=== PATIENT | male | born 1985 | race Hispanic/Latino ===

== ENCOUNTER 2018-07-17 17:06 | Inpatient (IN) | payer MEDICAID ==
[~2018-07-17] VITALS: Ht 182.9 cm; Wt 168.1 kg
[2018-07-17] MEDS ORDERED: SODIUM CHLORIDE 0.9% 1000ML 1,000 ML IV ONE ×2 (17:51→18:47)
[2018-07-17 18:22] LABS: BASOPHILS % (AUTO) 0.2 % (0.0-5.0); EOSINOPHILS % (AUTO) 0.3 % (0.0-8.0); HEMATOCRIT 42.7 % (42-54); LYMPHOCYTES % (AUTO) 7.6 % (21.0-51.0); MEAN CORPUSCULAR HEMOGLOBIN 27.4 pg (27.0-33.0); MEAN CORPUSCULAR HGB CONC 33.2 g/dL (32.0-36.0); MEAN CORPUSCULAR VOLUME 82.3 fL (79-99); NEUTROPHILS % (AUTO) 86.9 % (40.0-77.0); PLATELET COUNT (AUTO) 287 K/uL (130-400); RED BLOOD CELL COUNT(AUTO) 5.19 MIL/uL (4.50-6.20); RED CELL DISTRIBUTION WIDTH 16.3 % (11.0-15.5); WHITE BLOOD COUNT (AUTO) 18.2 K/uL (4.8-10.8)
[2018-07-17 18:37] LABS: CREATININE 5.4 mg/dL (0.5-1.5); POTASSIUM 3.3 mmol/L (3.5-5.1)
[2018-07-17 18:43] LABS: ALBUMIN 2.8 g/dL (3.5-5.0); BILIRUBIN,TOTAL 2.4 mg/dL (0.2-1.0)
[2018-07-17] MEDS ORDERED: LEVOFLOXACIN 500 MG/D5W 100 ML 100 ML ONE (18:46)
[2018-07-17] MEDS ORDERED: METRONIDAZOLE 500MG/100ML BAG 100 ML ONE (18:46)
[2018-07-17] MEDS ORDERED: MAGNESIUM 2GM PREMIX 50ML 50 ML IV PRN (19:15)
[2018-07-17] MEDS ORDERED: POTASSIUM CHLORIDE 20MEQ/100ML 100 ML IV PRN (19:15)
[2018-07-17] MEDS ORDERED: LIDOCAINE HCL-MPF 1% 2ML VIAL IVP PRN (19:15)
[2018-07-17] MEDS ORDERED: SODIUM CHLORIDE 0.9% 1000ML 1,000 ML IV SCH ×3 (20:06→23:15)
[2018-07-17] MEDS ORDERED: GLUCAGON 1MG KIT 1 MG ML IM PRN (20:15)
[2018-07-17] MEDS ORDERED: DEXTROSE 50%-WATER 50 ML DISP.SYRIN IV PRN (20:15)
[2018-07-17] MEDS ORDERED: MORPHINE SULFATE 4 MG/1ML SYG IV PRN (20:15)
[2018-07-17] MEDS ORDERED: MORPHINE SULFATE 2 MG/ML 1ML SYG IV PRN (20:15)
[2018-07-17] MEDS ORDERED: ACETAMINOPHEN 325 MG TAB PO PRN ×2 (20:15→23:15)
[2018-07-17] MEDS ORDERED: ONDANSETRON HCL 4 MG/2 ML VIAL IV PRN (20:15)
[2018-07-17] MEDS ORDERED: VANCOMYCIN 2 GM in SODIUM CHLORIDE 0.9% 500ML 500 ML IV ONE (22:00)
[2018-07-17] MEDS ORDERED: COMPOUND IV REFRIGERATED 1 EACH IVSOLN MISC PRN (22:00)
[2018-07-17] MEDS ORDERED: VANCOMYCIN PROTOCOL PER PHARMACY IV SCH (22:00)
[2018-07-17] MEDS ORDERED: LIDOCAINE HCL-MPF 1% 2ML VIAL ONE (22:03)
[2018-07-17] MEDS ORDERED: POTASSIUM CHLORIDE 20MEQ/100ML 0 ML IV ONE (22:04)
[2018-07-17] MEDS ORDERED: VANCOMYCIN 1GM+NS 250ML 250 ML IV SCH ×4 (22:15→23:15)
[2018-07-17 23:38] LABS: BILIRUBIN,URINE Moderate (NEGATIVE); COLOR,URINE Dark Yellow (YELLOW); GLUCOSE, URINE (UA) Negative (NEGATIVE); KETONES,URINE Trace mg/dL (NEGATIVE); LEUKOCYTE ESTERASE ,URINE Small (NEGATIVE); NITRATE,URINE Negative (NEGATIVE); OCCULT BLOOD,URINE Trace (NEGATIVE); PROTEIN,URINE POS 1+ (NEGATIVE)
[2018-07-17 23:39] LABS: APPEARANCE,URINE CLOUDY (CLEAR)
[2018-07-17 23:45] VITALS: BP 105/51
[2018-07-17 23:46] LABS: AMORPHOUS SEDIMENT,UR Many /LPF (None Seen); BACTERIA,URINE None Seen /HPF (None Seen); RBC,URINE 0-1 /HPF (0-1); SQUAMOUS EPITHELIAL CELL,UR Few /HPF (0-2); WBC,URINE 0-1 /HPF (0-1)
[2018-07-18] VITALS (35 sets, daily range): BP systolic 85–169; BP diastolic 29–97
[2018-07-18] MEDS ORDERED: INSULIN HUMULIN R 100 UNIT/ML 3ML SQ SCH
[2018-07-18] MEDS ORDERED: SIMV10TA6 PO (00:14)
[2018-07-18] MEDS ORDERED: LORA10TA7 PO (00:14)
[2018-07-18] MEDS ORDERED: HYDR25TA PO (00:14)
[2018-07-18] MEDS ORDERED: VALS80TA2 PO (00:14)
[2018-07-18] MEDS ORDERED: FLUT16H NS (00:14)
[2018-07-18] MEDS ORDERED: METF-444 PO (00:14)
[2018-07-18] MEDS ORDERED: DEXTROSE 50%-WATER 50 ML DISP.SYRIN IV PRN (00:45)
[2018-07-18] MEDS ORDERED: NOREPINEPHRINE 4MG/NS 250ML 250 ML IV SCH (00:45)
[2018-07-18] MEDS ORDERED: GLUCAGON 1MG KIT 1 MG ML IM PRN (00:45)
[2018-07-18] MEDS ORDERED: ACETAMINOPHEN 650 MG SUPPOSITORY RC PRN (00:45)
[2018-07-18] MEDS ORDERED: SODIUM CHLORIDE 0.9% 1000ML 1,000 ML IV SCH (00:45)
[2018-07-18] MEDS: SODIUM CHLORIDE 0.9% 1000ML 1,000 ML IV SCH ×3 (01:32→02:47)
[2018-07-18] MEDS ORDERED: METRONIDAZOLE 500MG/100ML BAG 100 ML IV SCH (02:00)
[2018-07-18 04:22] LABS: BASOPHILS % (AUTO) 0.4 % (0.0-5.0); EOSINOPHILS % (AUTO) 0.1 % (0.0-8.0); HEMATOCRIT 36.5 % (42-54); LYMPHOCYTES % (AUTO) 7.2 % (21.0-51.0); MEAN CORPUSCULAR HEMOGLOBIN 27.6 pg (27.0-33.0); MEAN CORPUSCULAR HGB CONC 32.9 g/dL (32.0-36.0); MEAN CORPUSCULAR VOLUME 83.7 fL (79-99); MONOCYTES % (AUTO) 6.4 % (3.0-13.0); NEUTROPHILS % (AUTO) 85.9 % (40.0-77.0); PLATELET COUNT (AUTO) 285 K/uL (130-400); RED BLOOD CELL COUNT(AUTO) 4.36 MIL/uL (4.50-6.20); RED CELL DISTRIBUTION WIDTH 16.6 % (11.0-15.5); WHITE BLOOD COUNT (AUTO) 14.6 K/uL (4.8-10.8)
[2018-07-18 04:34] LABS: ALBUMIN 2.2 g/dL (3.5-5.0); BILIRUBIN,TOTAL 2.2 mg/dL (0.2-1.0); CREATININE 4.7 mg/dL (0.5-1.5)
[2018-07-18 04:38] LABS: POTASSIUM 2.6 mmol/L (3.5-5.1)
[2018-07-18] MEDS: POTASSIUM CHLORIDE 20MEQ/100ML 100 ML IV PRN ×3 (05:08→21:44)
[2018-07-18] MEDS: LIDOCAINE HCL-MPF 1% 2ML VIAL IVP PRN ×3 (05:08→21:44)
[2018-07-18] MEDS: INSULIN HUMULIN R 100 UNIT/ML 3ML SQ SCH ×4 (05:58→23:45)
[2018-07-18] MEDS ORDERED: ENOXAPARIN SODIUM 40 MG/0.4 ML SYRINGE SQ SCH (09:00)
[2018-07-18] MEDS ORDERED: FAMOTIDINE/PF 20 MG/2 ML VIAL IV SCH (09:00)
[2018-07-18] MEDS: ACETAMINOPHEN 325 MG TAB PO PRN ×3 (10:08→23:44)
[2018-07-18] MEDS ORDERED: PNEUMOCOCCAL VACCINE POLYVALENT 0.5 ML/VIAL [PPV] IM SCH (11:17)
[2018-07-18] MEDS: AZTREONAM 1 GM VIAL IVP SCH ×2 (12:17→23:43)
[2018-07-18] MEDS: LACTATED RINGERS 1000ML 1,000 ML IV SCH ×2 (12:20→20:40)
[2018-07-18] MEDS: LEVOFLOXACIN 500 MG/D5W 100 ML 100 ML IV SCH (13:24)
[2018-07-18] MEDS: ONDANSETRON HCL 4 MG/2 ML VIAL IVP PRN (13:24)
[2018-07-18] MEDS: METRONIDAZOLE 500MG/100ML BAG 100 ML IV SCH ×2 (16:21→23:43)
[2018-07-18] MEDS ORDERED: LORAZEPAM 2 MG/ML 1 ML VIAL IVP PRN (16:30)
[2018-07-18] MEDS ORDERED: VANCOMYCIN 750MG + NS 250 ML IV SCH ×2 (18:00)
[2018-07-19] VITALS (25 sets, daily range): BP systolic 126–174; BP diastolic 63–93
[2018-07-19] MEDS: POTASSIUM CHLORIDE 20MEQ/100ML 100 ML IV PRN ×2 (01:10→02:28)
[2018-07-19] MEDS: LIDOCAINE HCL-MPF 1% 2ML VIAL IVP PRN ×2 (01:10→02:28)
[2018-07-19 03:37] LABS: HEMATOCRIT 36.6 % (42-54); MEAN CORPUSCULAR HEMOGLOBIN 26.8 pg (27.0-33.0); MEAN CORPUSCULAR HGB CONC 32.5 g/dL (32.0-36.0); MEAN CORPUSCULAR VOLUME 82.5 fL (79-99); PLATELET COUNT (AUTO) 278 K/uL (130-400); RED BLOOD CELL COUNT(AUTO) 4.44 MIL/uL (4.50-6.20); RED CELL DISTRIBUTION WIDTH 16.7 % (11.0-15.5); WHITE BLOOD COUNT (AUTO) 11.8 K/uL (4.8-10.8)
[2018-07-19 03:47] LABS: ALBUMIN 2.1 g/dL (3.5-5.0); BILIRUBIN,TOTAL 2.7 mg/dL (0.2-1.0); CREATININE 1.7 mg/dL (0.5-1.5); POTASSIUM 3.7 mmol/L (3.5-5.1); TOTAL PROTEIN, SERUM 7.5 g/dL (6.0-8.3)
[2018-07-19] MEDS: LACTATED RINGERS 1000ML 1,000 ML IV SCH ×3 (05:05→15:57)
[2018-07-19] MEDS: INSULIN HUMULIN R 100 UNIT/ML 3ML SQ SCH ×3 (06:00→20:09)
[2018-07-19] MEDS: METRONIDAZOLE 500MG/100ML BAG 100 ML IV SCH ×3 (08:29→23:22)
[2018-07-19] MEDS: ACETAMINOPHEN 325 MG TAB PO PRN ×2 (09:53→20:09)
[2018-07-19] MEDS ORDERED: MORPHINE SULFATE 2 MG/ML 1ML SYG IM PRN (11:00)
[2018-07-19] MEDS: AZTREONAM 1 GM VIAL IVP SCH ×2 (12:05→23:10)
[2018-07-19] MEDS ORDERED: POTASSIUM CHLORIDE 20 MEQ ERTAB PO PRN (17:00)
[2018-07-19] MEDS ORDERED: LEVOFLOXACIN 500 MG/D5W 100 ML 100 ML IV SCH (18:00)
[2018-07-19] MEDS: ONDANSETRON HCL 4 MG/2 ML VIAL IVP PRN (21:04)
[2018-07-19] MEDS: MORPHINE SULFATE 2 MG/ML 1ML SYG IV PRN (21:09)
[2018-07-20] VITALS (13 sets, daily range): BP systolic 97–150; BP diastolic 45–98
[2018-07-20] MEDS ORDERED: HALOPERIDOL LACTATE 5 MG/ML VIAL ONE (03:15)
[2018-07-20] MEDS ORDERED: HALOPERIDOL LACTATE 5 MG/ML VIAL IV PRN (03:15)
[2018-07-20] MEDS: LACTATED RINGERS 1000ML 1,000 ML IV SCH ×2 (03:25→14:26)
[2018-07-20 05:36] LABS: CREATININE 1.2 mg/dL (0.5-1.5); POTASSIUM 3.9 mmol/L (3.5-5.1)
[2018-07-20] MEDS: INSULIN HUMULIN R 100 UNIT/ML 3ML SQ SCH ×4 (06:34→20:52)
[2018-07-20] MEDS: METRONIDAZOLE 500MG/100ML BAG 100 ML IV SCH ×3 (07:34→23:30)
[2018-07-20 07:38] LABS: HEMATOCRIT 36.1 % (42-54); MEAN CORPUSCULAR HEMOGLOBIN 27.8 pg (27.0-33.0); MEAN CORPUSCULAR HGB CONC 33.7 g/dL (32.0-36.0); MEAN CORPUSCULAR VOLUME 82.6 fL (79-99); NUCLEATED RED BLOOD CELLS 0.1 % (0.0-0.19); PLATELET COUNT (AUTO) 374 K/uL (130-400); RED BLOOD CELL COUNT(AUTO) 4.37 MIL/uL (4.50-6.20); RED CELL DISTRIBUTION WIDTH 17.2 % (11.0-15.5); WHITE BLOOD COUNT (AUTO) 12.1 K/uL (4.8-10.8)
[2018-07-20] MEDS: ENOXAPARIN SODIUM 60 MG/0.6 ML SQ SCH ×2 (09:00→20:52)
[2018-07-20] MEDS ORDERED: ZIPRASIDONE MESYLATE 20 MG/VIAL IM PRN ×2 (09:00→09:15)
[2018-07-20] MEDS: AZTREONAM 1 GM VIAL IVP SCH ×2 (12:39→23:22)
[2018-07-20] MEDS: LEVOFLOXACIN 500 MG/D5W 100 ML 100 ML IV SCH ×2 (12:44→14:07)
[2018-07-20] MEDS: PANTOPRAZOLE SODIUM 40 MG TABLET.DR PO SCH (12:57)
[2018-07-20] MEDS: HYDROCODONE/ACETAMINOPHEN 5/325 MG TAB PO PRN ×2 (14:24→20:51)
[2018-07-20 19:33] LABS: HEMATOCRIT 33.9 % (42-54); MEAN CORPUSCULAR HGB CONC 33.8 g/dL (32.0-36.0); MEAN CORPUSCULAR VOLUME 82.7 fL (79-99); PLATELET COUNT (AUTO) 399 K/uL (130-400); RED CELL DISTRIBUTION WIDTH 16.5 % (11.0-15.5); WHITE BLOOD COUNT (AUTO) 11.1 K/uL (4.8-10.8)
[2018-07-20] MEDS: QUETIAPINE FUMARATE 25 MG TAB PO SCH (20:51)
[2018-07-21] MEDS: LACTATED RINGERS 1000ML 1,000 ML IV SCH ×2 (02:11→14:38)
[2018-07-21 04:00] VITALS: BP 114/62
[2018-07-21] MEDS: PANTOPRAZOLE SODIUM 40 MG TABLET.DR PO SCH ×2 (05:29→08:48)
[2018-07-21 05:30] LABS: MEAN CORPUSCULAR HEMOGLOBIN 27.5 pg (27.0-33.0); MEAN CORPUSCULAR HGB CONC 33.1 g/dL (32.0-36.0); PLATELET COUNT (AUTO) 389 K/uL (130-400); RED BLOOD CELL COUNT(AUTO) 3.98 MIL/uL (4.50-6.20); RED CELL DISTRIBUTION WIDTH 16.9 % (11.0-15.5); WHITE BLOOD COUNT (AUTO) 9.3 K/uL (4.8-10.8)
[2018-07-21 05:38] LABS: CREATININE 1.2 mg/dL (0.5-1.5); POTASSIUM 3.2 mmol/L (3.5-5.1)
[2018-07-21] MEDS: INSULIN HUMULIN R 100 UNIT/ML 3ML SQ SCH ×4 (05:41→20:31)
[2018-07-21] MEDS: POTASSIUM CHLORIDE 10% ELIXIR 20 MEQ/15 ML UDCUP PO PRN ×3 (05:55→19:30)
[2018-07-21] MEDS: QUETIAPINE FUMARATE 25 MG TAB PO SCH ×2 (08:48→19:30)
[2018-07-21] MEDS: METRONIDAZOLE 500MG/100ML BAG 100 ML IV SCH ×3 (08:48→23:23)
[2018-07-21] MEDS: LEVOFLOXACIN 500 MG/D5W 100 ML 100 ML IV SCH (08:48)
[2018-07-21 08:49] VITALS: BP 111/52
[2018-07-21] MEDS: MORPHINE SULFATE 2 MG/ML 1ML SYG IV PRN (08:49)
[2018-07-21] MEDS: AZTREONAM 1 GM VIAL IVP SCH (11:21)
[2018-07-21 12:23] VITALS: BP 111/56
[2018-07-21] MEDS ORDERED: MAGNESIUM CITRATE 296 ML SOLUTION PO SCH (14:15)
[2018-07-21] MEDS ORDERED: LACTULOSE 20 GM/30 ML UDCUP PO SCH ×3 (14:15→16:15)
[2018-07-21] MEDS ORDERED: PEG 3350/NA SULF,BICARB,CL/KCL 4000 ML SOLN PO SCH (16:15)
[2018-07-21 17:16] VITALS: BP 106/69
[2018-07-21] MEDS ORDERED: BISACODYL 5 MG TABLET.DR PO SCH (19:30)
[2018-07-21 20:00] VITALS: BP 125/83
[2018-07-21] MEDS: HYDROCODONE/ACETAMINOPHEN 5/325 MG TAB PO PRN (20:39)
[2018-07-21 23:35] VITALS: BP 127/86
[2018-07-22] VITALS (21 sets, daily range): BP systolic 90–146; BP diastolic 44–100
[2018-07-22] MEDS: LACTATED RINGERS 1000ML 1,000 ML IV SCH ×3 (00:34→23:50)
[2018-07-22] MEDS: ONDANSETRON HCL 4 MG/2 ML VIAL IVP PRN (01:46)
[2018-07-22 04:11] LABS: BASOPHILS % (AUTO) 0.7 % (0.0-5.0); EOSINOPHILS % (AUTO) 1.3 % (0.0-8.0); HEMATOCRIT 31.7 % (42-54); LYMPHOCYTES % (AUTO) 15.3 % (21.0-51.0); MEAN CORPUSCULAR HEMOGLOBIN 28.5 pg (27.0-33.0); MEAN CORPUSCULAR HGB CONC 34.3 g/dL (32.0-36.0); MEAN CORPUSCULAR VOLUME 83.1 fL (79-99); NEUTROPHILS % (AUTO) 75.7 % (40.0-77.0); PLATELET COUNT (AUTO) 494 K/uL (130-400); RED BLOOD CELL COUNT(AUTO) 3.82 MIL/uL (4.50-6.20); RED CELL DISTRIBUTION WIDTH 17.1 % (11.0-15.5); WHITE BLOOD COUNT (AUTO) 8.9 K/uL (4.8-10.8)
[2018-07-22 04:31] LABS: BILIRUBIN,TOTAL 0.9 mg/dL (0.2-1.0); POTASSIUM 3.7 mmol/L (3.5-5.1); TOTAL PROTEIN, SERUM 6.9 g/dL (6.0-8.3)
[2018-07-22] MEDS: INSULIN HUMULIN R 100 UNIT/ML 3ML SQ SCH ×4 (06:35→20:41)
[2018-07-22] MEDS: PANTOPRAZOLE SODIUM 40 MG TABLET.DR PO SCH (08:30)
[2018-07-22] MEDS: METRONIDAZOLE 500MG/100ML BAG 100 ML IV SCH ×3 (08:30→23:50)
[2018-07-22] MEDS: QUETIAPINE FUMARATE 25 MG TAB PO SCH ×2 (08:31→20:40)
[2018-07-22] MEDS: LEVOFLOXACIN 500 MG/D5W 100 ML 100 ML IV SCH ×2 (08:31→08:35)
[2018-07-22] MEDS ORDERED: PROPOFOL 1000 MG/100 ML 100 ML IV ONE (13:15)
[2018-07-22] MEDS: MORPHINE SULFATE 2 MG/ML 1ML SYG IV PRN (15:32)
[2018-07-23] VITALS (13 sets, daily range): BP systolic 90–122; BP diastolic 39–62
[2018-07-23] MEDS: INSULIN HUMULIN R 100 UNIT/ML 3ML SQ SCH ×4 (06:21→21:00)
[2018-07-23] MEDS: PANTOPRAZOLE SODIUM 40 MG TABLET.DR PO SCH (07:30)
[2018-07-23] MEDS ORDERED: LIDOCAINE HCL 1% 20 ML VIAL ONE (13:00)
[2018-07-23] MEDS ORDERED: GLYCOPYRROLATE 0.2 MG/ML 5 ML VIAL ONE (13:00)
[2018-07-23] MEDS ORDERED: PROPOFOL 10 MG/ML 20ML VIAL IV ONE (13:00)
[2018-07-23] MEDS ORDERED: SUCCINYLCHOLINE CHLORIDE 20 MG/ML 10 ML VIAL ONE (13:12)
[2018-07-23] MEDS: LACTATED RINGERS 1000ML 1,000 ML IV SCH ×2 (13:42→21:31)
[2018-07-23] MEDS: METRONIDAZOLE 500MG/100ML BAG 100 ML IV SCH ×3 (15:09→23:05)
[2018-07-23] MEDS: LEVOFLOXACIN 500 MG/D5W 100 ML 100 ML IV SCH ×2 (15:09→15:22)
[2018-07-23] MEDS: QUETIAPINE FUMARATE 25 MG TAB PO SCH ×3 (15:10→21:53)
[2018-07-23] MEDS: MORPHINE SULFATE 2 MG/ML 1ML SYG IV PRN (23:02)
[2018-07-24] VITALS (21 sets, daily range): BP systolic 104–136; BP diastolic 55–71
[2018-07-24 05:04] LABS: HEMATOCRIT 32.5 % (42-54); MEAN CORPUSCULAR HEMOGLOBIN 27.7 pg (27.0-33.0); MEAN CORPUSCULAR VOLUME 84.2 fL (79-99); PLATELET COUNT (AUTO) 492 K/uL (130-400); RED BLOOD CELL COUNT(AUTO) 3.86 MIL/uL (4.50-6.20); RED CELL DISTRIBUTION WIDTH 17.3 % (11.0-15.5); WHITE BLOOD COUNT (AUTO) 7.3 K/uL (4.8-10.8)
[2018-07-24 05:14] LABS: CREATININE 0.9 mg/dL (0.5-1.5); MAGNESIUM 1.6 mg/dL (1.80-2.40); POTASSIUM 3.6 mmol/L (3.5-5.1)
[2018-07-24] MEDS: INSULIN HUMULIN R 100 UNIT/ML 3ML SQ SCH ×4 (06:21→20:20)
[2018-07-24] MEDS: QUETIAPINE FUMARATE 25 MG TAB PO SCH ×2 (09:00→20:31)
[2018-07-24] MEDS: METRONIDAZOLE 500MG/100ML BAG 100 ML IV SCH (12:18)
[2018-07-24] MEDS: LACTATED RINGERS 1000ML 1,000 ML IV SCH (12:18)
[2018-07-24] MEDS ORDERED: ONDANSETRON HCL 4 MG/2 ML VIAL ONE (12:50)
[2018-07-24] MEDS ORDERED: LIDOCAINE PF 2% 5ML ABBOJECT ONE (12:50)
[2018-07-24] MEDS ORDERED: DEXAMETHASONE SOD PHOSPHATE 10MG/ML 1ML VIAL ONE (12:50)
[2018-07-24] MEDS ORDERED: PROPOFOL 10 MG/ML 20ML VIAL IV ONE (12:50)
[2018-07-24] MEDS ORDERED: FENTANYL CITRATE PF 50 MCG/1 ML 2ML VIAL ONE (12:51)
[2018-07-24] MEDS ORDERED: MIDAZOLAM HCL 1 MG/ML 2ML VIAL ONE (12:51)
[2018-07-24] MEDS ORDERED: NEOSTIGMINE 5MG/5ML SYR IV ONE (12:51)
[2018-07-24] MEDS ORDERED: ROCURONIUM 10MG/1ML SYR 10 MG/ML ML ONE (12:51)
[2018-07-24] MEDS ORDERED: MAGNESIUM 2GM PREMIX 50ML 50 ML IV SCH (18:00)
[2018-07-24] MEDS: CEFTRIAXONE SODIUM 1 GM IVP SCH (18:13)
[2018-07-24] MEDS: MORPHINE SULFATE 2 MG/ML 1ML SYG IV PRN (20:35)
[2018-07-25] MEDS: LACTATED RINGERS 1000ML 1,000 ML IV SCH ×2 (02:28→13:35)
[2018-07-25 03:00] VITALS: BP 105/53
[2018-07-25] MEDS: INSULIN HUMULIN R 100 UNIT/ML 3ML SQ SCH ×4 (06:32→21:00)
[2018-07-25] MEDS: PANTOPRAZOLE SODIUM 40 MG TABLET.DR PO SCH (06:34)
[2018-07-25 08:00] VITALS: BP 138/78
[2018-07-25] MEDS: QUETIAPINE FUMARATE 25 MG TAB PO SCH ×2 (10:15→20:53)
[2018-07-25 11:48] VITALS: BP 119/69
[2018-07-25] MEDS: CEFTRIAXONE SODIUM 1 GM IVP SCH (14:37)
[2018-07-25 16:00] VITALS: BP 133/59
[2018-07-25 19:59] VITALS: BP 110/67
[2018-07-26] MEDS: LACTATED RINGERS 1000ML 1,000 ML IV SCH ×3 (03:09→23:37)
[2018-07-26 05:20] VITALS: BP 112/72
[2018-07-26] MEDS: INSULIN HUMULIN R 100 UNIT/ML 3ML SQ SCH ×4 (06:41→20:43)
[2018-07-26] MEDS: PANTOPRAZOLE SODIUM 40 MG TABLET.DR PO SCH (06:41)
[2018-07-26 08:16] VITALS: BP 137/77
[2018-07-26] MEDS: QUETIAPINE FUMARATE 25 MG TAB PO SCH ×2 (09:07→20:42)
[2018-07-26 11:37] VITALS: BP 141/77
[2018-07-26 16:57] VITALS: BP 132/76
[2018-07-26] MEDS: CEFTRIAXONE SODIUM 1 GM IVP SCH (17:40)
[2018-07-26 20:00] VITALS: BP 116/70
[2018-07-27] VITALS (7 sets, daily range): BP systolic 107–143; BP diastolic 60–74
[2018-07-27] MEDS: INSULIN HUMULIN R 100 UNIT/ML 3ML SQ SCH ×4 (07:30→21:00)
[2018-07-27] MEDS: QUETIAPINE FUMARATE 25 MG TAB PO SCH ×2 (10:27→21:07)
[2018-07-27] MEDS: PANTOPRAZOLE SODIUM 40 MG TABLET.DR PO SCH (10:27)
[2018-07-27] MEDS: ACETAMINOPHEN 325 MG TAB PO PRN (10:34)
[2018-07-27] MEDS: CEFTRIAXONE SODIUM 1 GM IVP SCH (15:54)
[2018-07-28] MEDS: ACETAMINOPHEN 325 MG TAB PO PRN
[2018-07-28 04:00] VITALS: BP 116/63
[2018-07-28] MEDS: INSULIN HUMULIN R 100 UNIT/ML 3ML SQ SCH ×3 (06:01→16:30)
[2018-07-28] MEDS: PANTOPRAZOLE SODIUM 40 MG TABLET.DR PO SCH (06:52)
[2018-07-28 07:00] VITALS: BP 116/72
[2018-07-28] MEDS: QUETIAPINE FUMARATE 25 MG TAB PO SCH (10:26)
[2018-07-28 11:00] VITALS: BP 115/69
[2018-07-28] MEDS: CEFTRIAXONE SODIUM 1 GM IVP SCH (15:00)
[2018-07-28 16:00] VITALS: BP 122/66
== END 2018-07-28 18:25 | disposition home health service (06) | DRG 710 ==
LOC: EDH 17:06 → EDHIP 19:12 → 2CH 22:56 → 3AH 07-20 12:05 → 3CH 07-20 16:15
PROVIDERS: ADMIT Family Medicine; ATTEND Family Medicine
PROC: 3E0234Z Introduction of Serum, Toxoid and Vaccine into Muscle, Percutaneous Approach (ICD-10-PCS; 2018-07-21)
PROC: 3E02340 Introduction of Influenza Vaccine into Muscle, Percutaneous Approach (ICD-10-PCS; 2018-07-21)
PROC: 0DBC8ZZ Excision of Ileocecal Valve, Via Natural or Artificial Opening Endoscopic (ICD-10-PCS; principal; 2018-07-22)
PROC: 0DBB8ZX Excision of Ileum, Via Natural or Artificial Opening Endoscopic, Diagnostic (ICD-10-PCS; 2018-07-22)
PROC: 0DBE8ZX Excision of Large Intestine, Via Natural or Artificial Opening Endoscopic, Diagnostic (ICD-10-PCS; 2018-07-22)
DX: A41.51 Sepsis due to Escherichia coli [E. coli] (principal); N17.0 Acute kidney failure with tubular necrosis; R65.21 Severe sepsis with septic shock; K85.90 Acute pancreatitis without necrosis or infection, unspecified; G92 Toxic encephalopathy; E11.9 Type 2 diabetes mellitus without complications; D64.9 Anemia, unspecified; E66.2 Morbid (severe) obesity with alveolar hypoventilation; K35.80 Unspecified acute appendicitis; Z68.42 Body mass index [BMI] 45.0-49.9, adult; E86.0 Dehydration; E87.6 Hypokalemia; A09 Infectious gastroenteritis and colitis, unspecified; Z74.01 Bed confinement status; R53.81 Other malaise; F79 Unspecified intellectual disabilities; I10 Essential (primary) hypertension; E78.00 Pure hypercholesterolemia, unspecified; Z88.0 Allergy status to penicillin; F39 Unspecified mood [affective] disorder; B96.89 Other specified bacterial agents as the cause of diseases classified elsewhere; E78.5 Hyperlipidemia, unspecified; I88.0 Nonspecific mesenteric lymphadenitis; K64.8 Other hemorrhoids; R41.89 Other symptoms and signs involving cognitive functions and awareness; F03.90 Unspecified dementia, unspecified severity, without behavioral disturbance, psychotic disturbance, mood disturbance, and anxiety; Z78.9 Other specified health status; Z23 Encounter for immunization
CPT/HCPCS: 36415; 43239; 45380; 70450; 71045; 74176; 80048; 80053; 80202; 81001; 82150; 82270; 82948; 83605; 83690; 83735; 84132; 85025; 85027; 86677; 87040; 87077; 87177; 87186; 87324; 87804; 88305; 90732; 95819; 97039; A4218; G0008; G0009; J0330; J0696; J1100; J1630; J1650; J1956; J2001; J2250; J2405; J2704; J2710; J3010; J3370; J3475; J3480; J3490; J7030; J7040; J7120; Q2038

== ENCOUNTER 2018-09-13 10:26 | Observation (INO) | payer MEDICAID ==
[~2018-09-13] VITALS: Ht 170.2 cm; Wt 161.2 kg
[~2018-09-13 10:26] MED LIST: FLUT16H NS; HYDR25TA PO; LORA10TA7 PO; METF-444 PO; SIMV10TA6 PO; VALS80TA2 PO
[2018-09-13 11:28] LABS: BASOPHILS % (AUTO) 0.8 % (0.0-5.0); EOSINOPHILS % (AUTO) 2.1 % (0.0-8.0); HEMATOCRIT 42.8 % (42-54); LYMPHOCYTES % (AUTO) 27.3 % (21.0-51.0); MEAN CORPUSCULAR HEMOGLOBIN 28.3 pg (27.0-33.0); MEAN CORPUSCULAR HGB CONC 33.5 g/dL (32.0-36.0); MEAN CORPUSCULAR VOLUME 84.5 fL (79-99); NEUTROPHILS % (AUTO) 62.8 % (40.0-77.0); NUCLEATED RED BLOOD CELLS 0.1 % (0.0-0.19); PLATELET COUNT (AUTO) 290 K/uL (130-400); RED BLOOD CELL COUNT(AUTO) 5.07 MIL/uL (4.50-6.20); WHITE BLOOD COUNT (AUTO) 9.2 K/uL (4.8-10.8)
[2018-09-13 12:37] LABS: APPEARANCE,URINE Clear (CLEAR); BILIRUBIN,URINE Negative (NEGATIVE); COLOR,URINE Yellow (YELLOW); GLUCOSE, URINE (UA) Negative (NEGATIVE); KETONES,URINE Negative (NEGATIVE); LEUKOCYTE ESTERASE ,URINE Negative (NEGATIVE); NITRATE,URINE Negative (NEGATIVE); OCCULT BLOOD,URINE Negative (NEGATIVE); PH,URINE 5.5 (5.0-8.0); PROTEIN,URINE Negative (NEGATIVE)
[2018-09-13 14:29] LABS: CREATININE 1.1 mg/dL (0.5-1.5); POTASSIUM 3.5 mmol/L (3.5-5.1)
[2018-09-13 14:34] LABS: ALBUMIN 3.2 g/dL (3.5-5.0); BILIRUBIN,TOTAL 0.8 mg/dL (0.2-1.0); TOTAL PROTEIN, SERUM 8.6 g/dL (6.0-8.3)
[2018-09-13] MEDS ORDERED: SODIUM CHLORIDE 0.9% 1000ML 1,000 ML IV ONE (15:39)
[2018-09-13] MEDS ORDERED: LOPE2CAP PO (23:48)
[2018-09-13] MEDS: SODIUM CHLORIDE 0.9% 1000ML 1,000 ML IV SCH (23:48)
[2018-09-13] MEDS ORDERED: PANT40TA25 PO (23:48)
[2018-09-14] VITALS: BP 142/93
[2018-09-14 04:00] VITALS: BP 141/84
[2018-09-14 05:41] LABS: HEMATOCRIT 38.7 % (42-54); MEAN CORPUSCULAR HEMOGLOBIN 27.9 pg (27.0-33.0); MEAN CORPUSCULAR HGB CONC 33.3 g/dL (32.0-36.0); NUCLEATED RED BLOOD CELLS 0.1 % (0.0-0.19); PLATELET COUNT (AUTO) 256 K/uL (130-400); RED BLOOD CELL COUNT(AUTO) 4.61 MIL/uL (4.50-6.20); RED CELL DISTRIBUTION WIDTH 16.2 % (11.0-15.5); WHITE BLOOD COUNT (AUTO) 7.7 K/uL (4.8-10.8)
[2018-09-14 05:58] LABS: CREATININE 1.1 mg/dL (0.5-1.5); POTASSIUM 3.2 mmol/L (3.5-5.1)
[2018-09-14 08:05] VITALS: BP 127/72
[2018-09-14] MEDS: SODIUM CHLORIDE 0.9% 1000ML 1,000 ML IV SCH ×2 (09:30→20:07)
[2018-09-14] MEDS ORDERED: POTASSIUM CHLORIDE 10% ELIXIR 20 MEQ/15 ML UDCUP PO PRN (11:30)
[2018-09-14] MEDS ORDERED: POTASSIUM CHLORIDE 20MEQ/100ML 100 ML IV PRN (11:30)
[2018-09-14] MEDS ORDERED: LIDOCAINE HCL-MPF 1% 2ML VIAL IVP PRN (11:30)
[2018-09-14] MEDS ORDERED: ACETAMINOPHEN EXTRA STRENGTH 500 MG TABLET PO PRN (14:15)
[2018-09-14] MEDS: POTASSIUM CHLORIDE 20 MEQ ERTAB PO PRN ×3 (14:46→19:18)
[2018-09-14 16:00] VITALS: BP 131/78
[2018-09-14 19:52] VITALS: BP 132/95
[2018-09-14] MEDS ORDERED: PEG 3350/NA SULF,BICARB,CL/KCL 4000 ML SOLN PO ONE (20:15)
[2018-09-14] MEDS ORDERED: MAGNESIUM CITRATE 296 ML SOLUTION PO ONE (20:15)
[2018-09-14] MEDS ORDERED: MAGNESIUM CITRATE 296 ML SOLUTION ONE (21:33)
[2018-09-14] MEDS: HYDROCORTISONE 25 MG SUPPOSITORY PR SCH (21:40)
[2018-09-14] MEDS: LACTULOSE 20 GM/30 ML UDCUP PO SCH (21:40)
[2018-09-14] MEDS ORDERED: ONDANSETRON HCL 4 MG/2 ML VIAL ONE (23:10)
[2018-09-14] MEDS ORDERED: ONDANSETRON HCL MDV 20ML 2 MG/ML VIAL IVP PRN (23:15)
[2018-09-14] MEDS ORDERED: ONDANSETRON HCL 4 MG/2 ML VIAL IVP PRN (23:20)
[2018-09-15] VITALS (7 sets, daily range): BP systolic 127–154; BP diastolic 60–88
[2018-09-15 05:27] LABS: HEMATOCRIT 37.1 % (42-54); MEAN CORPUSCULAR HEMOGLOBIN 28.1 pg (27.0-33.0); MEAN CORPUSCULAR HGB CONC 33.2 g/dL (32.0-36.0); MEAN CORPUSCULAR VOLUME 84.4 fL (79-99); NUCLEATED RED BLOOD CELLS 0.1 % (0.0-0.19); PLATELET COUNT (AUTO) 285 K/uL (130-400); RED BLOOD CELL COUNT(AUTO) 4.39 MIL/uL (4.50-6.20); RED CELL DISTRIBUTION WIDTH 15.7 % (11.0-15.5)
[2018-09-15 05:33] LABS: HEMOGLOBIN A1C 5.6 % (4.0-6.0)
[2018-09-15 05:34] LABS: POTASSIUM 3.8 mmol/L (3.5-5.1)
[2018-09-15 05:43] LABS: BAND NEUTROPHILS % (MANUAL) 2 % (0-2); EOSINOPHILS % (MANUAL) 4 % (1-6); LYMPHOCYTES % (MANUAL) 34 % (22-44); MAN.DIFF COMMENT-IMPRESSION MANUAL DIFFERENTIAL; MONOCYTES % (MANUAL) 2 % (2-9); PLATELET MORPHOLOGY COMMENT ADEQUATE; SEGMENTED NEUTROPHILS % 58 % (40-70)
[2018-09-15] MEDS: LACTULOSE 20 GM/30 ML UDCUP PO SCH ×2 (09:19→21:00)
[2018-09-15] MEDS: HYDROCORTISONE 25 MG SUPPOSITORY PR SCH ×3 (09:20→21:31)
[2018-09-15] MEDS: SODIUM CHLORIDE 0.9% 1000ML 1,000 ML IV SCH ×2 (11:38→20:31)
[2018-09-15] MEDS ORDERED: LOPERAMIDE HCL 2 MG CAP PO PRN (14:15)
[2018-09-15] MEDS ORDERED: SIMVASTATIN 10 MG TABLET PO SCH (21:00)
[2018-09-15] MEDS ORDERED: FLUTICASONE PROPIONATE 50MCG/SPRAY 16 GM BOTTLE NS SCH (21:00)
[2018-09-16] MEDS: SODIUM CHLORIDE 0.9% 1000ML 1,000 ML IV SCH (03:38)
[2018-09-16 03:56] VITALS: BP 133/75
[2018-09-16 07:30] VITALS: BP 127/89
[2018-09-16] MEDS ORDERED: METFORMIN HCL 500 MG TAB.SR.24H PO SCH (08:00)
[2018-09-16] MEDS ORDERED: LORATADINE 10 MG TABLET PO SCH (09:00)
[2018-09-16] MEDS ORDERED: HYDROCHLOROTHIAZIDE 25 MG TABLET PO SCH (09:00)
[2018-09-16] MEDS ORDERED: PANTOPRAZOLE SODIUM 40 MG TABLET.DR PO SCH (09:00)
[2018-09-16] MEDS ORDERED: LOSARTAN 100 MG TABLET PO SCH (09:00)
[2018-09-16] MEDS: LACTULOSE 20 GM/30 ML UDCUP PO SCH (09:14)
[2018-09-16] MEDS: HYDROCORTISONE 25 MG SUPPOSITORY PR SCH (09:14)
[2018-09-16 11:00] VITALS: BP 118/80
[2018-09-16 16:00] VITALS: BP 154/99
== END 2018-09-16 18:25 | disposition home or self-care (01) ==
LOC: EDH 10:26 → EDHIP 10:27 → INTOOBSV 10:27 → 3DH 22:38
PROVIDERS: ADMIT Family Medicine; ATTEND Family Medicine
DX: R53.1 Weakness (principal); K92.2 Gastrointestinal hemorrhage, unspecified; A41.9 Sepsis, unspecified organism; E11.9 Type 2 diabetes mellitus without complications; E78.5 Hyperlipidemia, unspecified; I10 Essential (primary) hypertension; F79 Unspecified intellectual disabilities; K59.00 Constipation, unspecified; K64.9 Unspecified hemorrhoids; E87.6 Hypokalemia; E66.01 Morbid (severe) obesity due to excess calories; Z88.5 Allergy status to narcotic agent
CPT/HCPCS: 36415 ×3; 74176; 80048 ×2; 80053; 81003; 82948 ×11; 83036; 83605 ×2; 85025 ×2; 85027; 87040 ×2; 97039 ×3; 97116 ×2; 97161; 99284; G0378 ×80; G8979; G8980; G8981; G8982; G8983; J2405; J7030